=== PATIENT | female | born 1985 | race Caucasian/White ===

== ENCOUNTER 2016-12-20 08:32 | Emergency (ER) | payer OTHER ==
[~2016-12-20 08:32] MED LIST: ACET50TA PO; BREAMIS24 XX; RANI150T PO; SERT-141 PO; TYLE500T78 PO
[2016-12-20] MEDS ORDERED: diphenhydrAMINE 25 MG CAP As Ordered ONE (09:20)
[2016-12-20] MEDS ORDERED: predniSONE 20 MG TAB As Ordered ONE (09:20)
[2016-12-20] MEDS ORDERED: FAMOTIDINE 20 MG TAB As Ordered ONE (09:20)
--- NOTE | 2016-12-20 11:06 | EDDOCDS ---
Physician Documentation [facility] Name: Brisa Babcock April Age: 31 yrs Sex: Female : 1985 Arrival Date: 12/20/2016 Time: 08:32 Bed PR Private MD: Disposition: 12/20/16 10:14 Discharged to Home/Self Care. Impression: Rash and other nonspecific skin eruption - acute drug reaction to CT contrast dye, skin rash. - Condition is Stable. - Discharge Instructions: Drug Rash. - Prescriptions for Claritin 10 mg Oral Tablet - take 1 tablet by ORAL route once daily As needed; 30 tablet. Prednisone 20 mg Oral Tablet - take 2 tablets by ORAL route once daily for 5 days; 8 tablet. - Medication Reconciliation, Local Pharmacy Hours form. - Follow up: Emergency Department; When: As needed; Reason: Trouble breathing, Worsening of conditions. Follow up: Private Physician; When: Call to arrange an appointment; Reason: Recheck today's complaints, Continuance of care. - Problem is new. - Symptoms have improved. - Notes: recommend over the counter calamine lotion for itch relief. pump and dump while on prednisone. list CT contrast dye as allergy Historical: - Allergies: Hydrocodone-Acetaminophen (Swelling); IV Dye; - Home Meds: 1. Benadryl 25 mg Oral cap as needed (Last dose: 12/20/2016 01:00) 2. tramadol 50 mg Oral tab 1 tab every 4 hours (Last dose: 12/17/2016) 3. ferrous sulfate 325 mg (65 mg iron) Oral cpER daily 4. ranitidine HCl 150 mg Oral cap 1 cap 2 times per day 5. ibuprofen 800 mg Oral tab 6. Vitamin Oral tab 1 tab once daily 7. Sertraline 50 mg daily - PMHx: GERD; Hypothyroidism; immune dysfunction; - PSHx: Appendectomy; - Social history: Smoking status: Patient states former smoker of tobacco. No barriers to communication noted, The patient speaks fluent [place], Speaks appropriately for age. - Family history: Not pertinent. - : The pt / caregiver states he / she is not on anticoagulants. Home medication list is obtained from the patient. - Exposure Risk Screening:: None identified. 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 ar2 09:12 Famotidine 20 mg PO once ordered. ar2 09:12 diphenhydrAMINE 25 mg PO once ordered. ar2 09:13 Misc. Nursing Order ordered. ar2 09:16 REGULAR DIET ROOM SERVICE ED+DIET ordered. EDMS 09:20 Financial registration complete. 09:42 [facility] Payment Agreement was scanned into [employer] and attached to record. lg Administered Medications: 09:26 Drug: diphenhydrAMINE 25 mg [diphenhydramine 25 mg capsule (1 caps)] Route: PO; hs1 09:27 Drug: predniSONE 60 mg [prednisone 20 mg tablet (3 tabs)] Route: PO; hs1 09:27 Drug: Famotidine 20 mg [famotidine 20 mg tablet (1 tabs)] Route: PO; hs1 Signatures: Dispatcher [employer] EDIA Valerie Martinez, Flaco Reg lg Leeroy Houston PA-C PA-C ar2 Eda Lowery, ADELA RN hs1 The chart was reviewed and I authenticate all verbal orders and agree with the evaluation and treatment provided.Attachments: 09:42 [facility] Payment Agreement lg MTDD
--- NOTE | 2016-12-20 11:06 | EDDOCDS ---
Nurse's Notes [facility] Name: Brisa Babcock April Age: 31 yrs Sex: Female : 1985 Arrival Date: 12/20/2016 Time: 08:32 Bed PR Private MD: Diagnosis: Rash and other nonspecific skin eruption-acute drug reaction to CT contrast dye, skin rash Presentation: 12/20 08:45 Presenting complaint: Patient states: CT scan yesterday at [place] for increased pain in hs1 right side of abdomen. Patient under care of the surgeon in [place] who ordered CT scan. last night at 530 6 pm patient started itching. Patient took Benadryl at 6pm 2 pills and then again at 10 pm and then 1 pill at 0100. Patient also use hydrocortisone cream. Patient reports hot skin and itching. Onset: The symptoms/episode began/occurred gradually. This patient has not experienced a previous allergic reaction. Anaphylaxis evaluation, the patient reports or I have noted the following symptoms which indicate a significant risk of anaphylaxis: no signs or symptoms of anaphylaxis were noted. Adult Sepsis Screening: The patient does not have new or worsening altered mentation. Patient's respiratory rate is less than 22. Systolic blood pressure is less than or equal to 100 (1 point). Patient has a qSOFA score of 0- Negative Sepsis Screen. Suicide/Homicide risk assessment- the patient denies having any suicidal and/or homicidal ideations and does not present with any other emotional, behavioral or mental health complaints. Status: Patient is not a civil service clerk or dependent. Transition of care: patient was not received from another setting of care. 08:45 Acuity: KIM Level 3 hs1 08:45 Method Of Arrival: Walkin/Carried/Asstd hs1 Triage Assessment: 08:54 General: Appears uncomfortable, Behavior is crying. Pain: Location: abdomen Pain hs1 currently is 5 out of 10 on a pain scale. HIV screening NA for this visit Offered previously. Respiratory: Reports shortness of breath. 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 Benadryl 25 mg Oral cap as needed (Last dose: 12/20/2016 01:00) 2. tramadol 50 mg Oral tab 1 tab every 4 hours (Last dose: 12/17/2016) 3. ferrous sulfate 325 mg (65 mg iron) Oral cpER daily 4. ranitidine HCl 150 mg Oral cap 1 cap 2 times per day 5. ibuprofen 800 mg Oral tab 6. Vitamin Oral tab 1 tab once daily 7. Sertraline 50 mg daily - PMHx: GERD; Hypothyroidism; immune dysfunction; - PSHx: Appendectomy; - Social history: Smoking status: Patient states former smoker of tobacco. No barriers to communication noted, The patient speaks fluent Central African, Speaks appropriately for age. - Family history: Not pertinent. - : The pt / caregiver states he / she is not on anticoagulants. Home medication list is obtained from the patient. - Exposure Risk Screening:: None identified. Screenin:23 Screening information is obtained from the patient. Fall risk: No risks identified. hs1 Assistance ADL's: requires no assistance with activities of daily living. Abuse/DV Screen: The patient / caregiver reports he/she is: not in a situation that causes fear, pain or injury. Nutritional screening: No deficits noted. Advance Directives: There is no active DNR order. home support is adequate. Assessment: 10:23 Pain: Location: abdomen. Respiratory: Airway is patent Respiratory effort is even, hs1 unlabored, Respiratory pattern is regular, symmetrical, Breath sounds are clear. GI: other abdominal wound noted to have dressing no shadowing. 11:03 Reassessment: Patient appears in no apparent distress at this time. Patient states hs1 feeling better. Patient states symptoms have improved. Social Work Consult: 11:00 Social Work Note: PSA met with pt at bedside. Pt reports having a managed care managerfinancial project manager cs from the [facility], they have not been doing much for her and she feels over welmed. Pt was given the number for Vane Kaba from [employer] in this area, which has a great reputation when working with her clients. She was also given this tag writer's number for follow up if there are any issues. Pt given a cab pass ride home, extended support. Vital Signs: 08:45 BP 134 / 64; Pulse 88; Resp 18; Temp 98.7(O); Pulse Ox 100% on R/A; lr2 10:22 BP 115 / 60; Pulse 86; Resp 18; Temp 98.3(O); Pulse Ox 98% ; Pain 6/10; hs1 Vitals: 11:04 Log In Time: December 20, 2016 at 08:34. hs1 ED Course: 08:34 Patient visited by Ric Paniagua. jp5 08:34 Patient moved to Waiting jp5 08:42 Patient moved to Triage 2 lr2 08:45 Patient visited by Leda Cui. lr2 08:50 Triage Initiated hs1 09:02 Leeroy Houston PA-C is PHCP. ar2 09:02 Mustapha Lee MD is Attending Physician. ar2 09:02 Patient visited by Leeroy Houston PA-C. ar2 09:11 Patient moved to hs1 09:42 [facility] Payment Agreement was scanned into [employer] and attached to record. lg 09:55 Patient name changed from Brisa\S\C\S\Chasejune\S\ to Brisa\S\C\S\Sadiq April. EDMS 10:06 Patient visited by Leeroy Houston PA-C. ar2 10:32 Visited by Tadeo ALDANA. srm 11:03 No IV's were initiated during this patient's visit. No procedures done that require hs1 assistance. 11:04 The patient / caregiver is instructed regarding the plan of care and ED course. hs1 Administered Medications: 09:26 Drug: diphenhydrAMINE 25 mg [diphenhydramine 25 mg capsule (1 caps)] Route: PO; hs1 09:27 Drug: predniSONE 60 mg [prednisone 20 mg tablet (3 tabs)] Route: PO; hs1 09:27 Drug: Famotidine 20 mg [famotidine 20 mg tablet (1 tabs)] Route: PO; hs1 Order Results: There are currently no results for this order. Outcome: 10:14 Discharge ordered by Provider. ar2 11:04 Discharge Assessment: Patient awake, alert and oriented x 3. No cognitive and/or hs1 functional deficits noted. Patient verbalized understanding of disposition instructions. patient administered narcotics - no. The following High Risk Discharge criteria are identified: None. Discharged to home ambulatory. Condition: improved. Discharge instructions given to patient, Instructed on discharge instructions, follow up and referral plans. medication usage, Demonstrated understanding of instructions, medications, Pt was receptive of discharge instructions/ teaching. Prescriptions given X 2. No special radiology studies were completed. Property sent home with patient. 11:05 Patient left the ED. hs1 Signatures: Dispatcher MedHost EDPatricia Abel, RN RN srm Hector Quiñones, PSA PSA Valerie Salas, Reg Reg lg Leeroy Houston, Eda Moses PA-C, RN RN hs1 Ric Paniagua jp5 Leda Cui 2 MTDD
--- NOTE | 2016-12-22 12:05 | EDDOCDS ---
Nurse's Notes [facility] Name: Brisa Babcock April Age: 31 yrs Sex: Female : 1985 Arrival Date: 12/20/2016 Time: 08:32 Bed PR Private MD: Diagnosis: Rash and other nonspecific skin eruption-acute drug reaction to CT contrast dye, skin rash Presentation: 12/20 08:45 Presenting complaint: Patient states: CT scan yesterday at [place] for increased pain in hs1 right side of abdomen. Patient under care of the surgeon in [place] who ordered CT scan. last night at 530 6 pm patient started itching. Patient took Benadryl at 6pm 2 pills and then again at 10 pm and then 1 pill at 0100. Patient also use hydrocortisone cream. Patient reports hot skin and itching. Onset: The symptoms/episode began/occurred gradually. This patient has not experienced a previous allergic reaction. Anaphylaxis evaluation, the patient reports or I have noted the following symptoms which indicate a significant risk of anaphylaxis: no signs or symptoms of anaphylaxis were noted. Adult Sepsis Screening: The patient does not have new or worsening altered mentation. Patient's respiratory rate is less than 22. Systolic blood pressure is less than or equal to 100 (1 point). Patient has a qSOFA score of 0- Negative Sepsis Screen. Suicide/Homicide risk assessment- the patient denies having any suicidal and/or homicidal ideations and does not present with any other emotional, behavioral or mental health complaints. Status: Patient is not a route delivery service driver or dependent. Transition of care: patient was not received from another setting of care. 08:45 Acuity: KIM Level 3 hs1 08:45 Method Of Arrival: Walkin/Carried/Asstd hs1 Triage Assessment: 08:54 General: Appears uncomfortable, Behavior is crying. Pain: Location: abdomen Pain hs1 currently is 5 out of 10 on a pain scale. HIV screening NA for this visit Offered previously. Respiratory: Reports shortness of breath. 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 Benadryl 25 mg Oral cap as needed (Last dose: 12/20/2016 01:00) 2. tramadol 50 mg Oral tab 1 tab every 4 hours (Last dose: 12/17/2016) 3. ferrous sulfate 325 mg (65 mg iron) Oral cpER daily 4. ranitidine HCl 150 mg Oral cap 1 cap 2 times per day 5. ibuprofen 800 mg Oral tab 6. Vitamin Oral tab 1 tab once daily 7. Sertraline 50 mg daily - PMHx: GERD; Hypothyroidism; immune dysfunction; - PSHx: Appendectomy; - Social history: Smoking status: Patient states former smoker of tobacco. No barriers to communication noted, The patient speaks fluent Burmese, Speaks appropriately for age. - Family history: Not pertinent. - : The pt / caregiver states he / she is not on anticoagulants. Home medication list is obtained from the patient. - Exposure Risk Screening:: None identified. Screenin:23 Screening information is obtained from the patient. Fall risk: No risks identified. hs1 Assistance ADL's: requires no assistance with activities of daily living. Abuse/DV Screen: The patient / caregiver reports he/she is: not in a situation that causes fear, pain or injury. Nutritional screening: No deficits noted. Advance Directives: There is no active DNR order. home support is adequate. Assessment: 10:23 Pain: Location: abdomen. Respiratory: Airway is patent Respiratory effort is even, hs1 unlabored, Respiratory pattern is regular, symmetrical, Breath sounds are clear. GI: other abdominal wound noted to have dressing no shadowing. 11:03 Reassessment: Patient appears in no apparent distress at this time. Patient states hs1 feeling better. Patient states symptoms have improved. Social Work Consult: 11:00 Social Work Note: PSA met with pt at bedside. Pt reports having a transitions rn care coordinatormanager college cs from the [facility], they have not been doing much for her and she feels over welmed. Pt was given the number for Vane Kaba from [employer] in this area, which has a great reputation when working with her clients. She was also given this consumer loan underwriter's number for follow up if there are any issues. Pt given a cab pass ride home, extended support. Vital Signs: 08:45 BP 134 / 64; Pulse 88; Resp 18; Temp 98.7(O); Pulse Ox 100% on R/A; lr2 10:22 BP 115 / 60; Pulse 86; Resp 18; Temp 98.3(O); Pulse Ox 98% ; Pain 6/10; hs1 Vitals: 11:04 Log In Time: December 20, 2016 at 08:34. hs1 ED Course: 08:34 Patient visited by Ric Paniagua. jp5 08:34 Patient moved to Waiting jp5 08:42 Patient moved to Triage 2 lr2 08:45 Patient visited by Leda Cui. lr2 08:50 Triage Initiated hs1 09:02 [facility] [place] [facility] ar2 09:02 Mustapha Lee MD is Attending Physician. ar2 09:02 Patient visited by Leeroy Houston PA-C. ar2 09:11 Patient moved to hs1 09:42 [facility] Payment Agreement was scanned into [employer] and attached to record. lg 09:55 Patient name changed from Brisa\S\C\S\Chasejune\S\ to Brisa\S\C\S\Sadiq April. EDMS 10:06 Patient visited by Leeroy Houston PA-C. ar2 10:32 Visited by Tadeo ALDANA. srm 11:03 No IV's were initiated during this patient's visit. No procedures done that require hs1 assistance. 11:04 The patient / caregiver is instructed regarding the plan of care and ED course. hs1 14:34 T-Sheet-- Draft Copy was scanned into [employer] and attached to record. gb Administered Medications: 09:26 Drug: diphenhydrAMINE 25 mg [diphenhydramine 25 mg capsule (1 caps)] Route: PO; hs1 09:27 Drug: predniSONE 60 mg [prednisone 20 mg tablet (3 tabs)] Route: PO; hs1 09:27 Drug: Famotidine 20 mg [famotidine 20 mg tablet (1 tabs)] Route: PO; hs1 Order Results: There are currently no results for this order. Outcome: 10:14 Discharge ordered by Provider. ar2 11:04 Discharge Assessment: Patient awake, alert and oriented x 3. No cognitive and/or hs1 functional deficits noted. Patient verbalized understanding of disposition instructions. patient administered narcotics - no. The following High Risk Discharge criteria are identified: None. Discharged to home ambulatory. Condition: improved. Discharge instructions given to patient, Instructed on discharge instructions, follow up and referral plans. medication usage, Demonstrated understanding of instructions, medications, Pt was receptive of discharge instructions/ teaching. Prescriptions given X 2. No special radiology studies were completed. Property sent home with patient. 11:05 Patient left the ED. hs1 Signatures: Dispatcher [employer] EDMS Patricia Roman, RN RN srm Hector Quiñones, KATYA PSA cs Cathy Morris, Reg Reg gb Valerie Martinez, Reg Reg lg Leeroy Houston PA-C PA-Tadeo ar2 Eda Lowery RN RN hs1 Ric Paniagua 5 Leda Cui2 Chart Complete MTDD
--- NOTE | 2016-12-22 12:05 | EDDOCDS ---
Physician Documentation [facility] Name: Brisa Babcock April Age: 31 yrs Sex: Female : 1985 Arrival Date: 12/20/2016 Time: 08:32 Bed PR Private MD: Disposition: 12/20/16 10:14 Discharged to Home/Self Care. Impression: Rash and other nonspecific skin eruption - acute drug reaction to CT contrast dye, skin rash. - Condition is Stable. - Discharge Instructions: Drug Rash. - Prescriptions for Claritin 10 mg Oral Tablet - take 1 tablet by ORAL route once daily As needed; 30 tablet. Prednisone 20 mg Oral Tablet - take 2 tablets by ORAL route once daily for 5 days; 8 tablet. - Medication Reconciliation, Local Pharmacy Hours form. - Follow up: Emergency Department; When: As needed; Reason: Trouble breathing, Worsening of conditions. Follow up: Private Physician; When: Call to arrange an appointment; Reason: Recheck today's complaints, Continuance of care. - Problem is new. - Symptoms have improved. - Notes: recommend over the counter calamine lotion for itch relief. pump and dump while on prednisone. list CT contrast dye as allergy Historical: - Allergies: Hydrocodone-Acetaminophen (Swelling); IV Dye; - Home Meds: 1. Benadryl 25 mg Oral cap as needed (Last dose: 12/20/2016 01:00) 2. tramadol 50 mg Oral tab 1 tab every 4 hours (Last dose: 12/17/2016) 3. ferrous sulfate 325 mg (65 mg iron) Oral cpER daily 4. ranitidine HCl 150 mg Oral cap 1 cap 2 times per day 5. ibuprofen 800 mg Oral tab 6. Vitamin Oral tab 1 tab once daily 7. Sertraline 50 mg daily - PMHx: GERD; Hypothyroidism; immune dysfunction; - PSHx: Appendectomy; - Social history: Smoking status: Patient states former smoker of tobacco. No barriers to communication noted, The patient speaks fluent Mohawk, Speaks appropriately for age. - Family history: Not pertinent. - : The pt / caregiver states he / she is not on anticoagulants. Home medication list is obtained from the patient. - Exposure Risk Screening:: None identified. 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 ar2 09:12 Famotidine 20 mg PO once ordered. ar2 09:12 diphenhydrAMINE 25 mg PO once ordered. ar2 09:13 Misc. Nursing Order ordered. ar2 09:16 REGULAR DIET ROOM SERVICE ED+DIET ordered. EDMS 09:20 Financial registration complete. lg 09:42 [facility] Payment Agreement was scanned into [employer] and attached to record. lg 14:34 T-Sheet-- Draft Copy was scanned into [employer] and attached to record. gb Administered Medications: 09:26 Drug: diphenhydrAMINE 25 mg [diphenhydramine 25 mg capsule (1 caps)] Route: PO; hs1 09:27 Drug: predniSONE 60 mg [prednisone 20 mg tablet (3 tabs)] Route: PO; hs1 09:27 Drug: Famotidine 20 mg [famotidine 20 mg tablet (1 tabs)] Route: PO; hs1 Signatures: Dispatcher [employer] EDSC Cathy Morris, Reg Reg gb Valerie Martinez, Reg Reg lg Leeroy Houston, SONIA SCOTT ar2 Eda Lowery, RN RN hs1 The chart was reviewed and I authenticate all verbal orders and agree with the evaluation and treatment provided.Attachments: :42 [facility] Payment Agreement lg 14:34 T-Sheet-- Draft Copy gb Chart Complete MTDD
--- NOTE | 2016-12-22 12:05 | EDDOCDS ---
Physician Documentation [facility] Name: Brisa Babcock April Age: 31 yrs Sex: Female : 1985 Arrival Date: 12/20/2016 Time: 08:32 Bed PR Private MD: Disposition: 12/20/16 10:14 Discharged to Home/Self Care. Impression: Rash and other nonspecific skin eruption - acute drug reaction to CT contrast dye, skin rash. - Condition is Stable. - Discharge Instructions: Drug Rash. - Prescriptions for Claritin 10 mg Oral Tablet - take 1 tablet by ORAL route once daily As needed; 30 tablet. Prednisone 20 mg Oral Tablet - take 2 tablets by ORAL route once daily for 5 days; 8 tablet. - Medication Reconciliation, Local Pharmacy Hours form. - Follow up: Emergency Department; When: As needed; Reason: Trouble breathing, Worsening of conditions. Follow up: Private Physician; When: Call to arrange an appointment; Reason: Recheck today's complaints, Continuance of care. - Problem is new. - Symptoms have improved. - Notes: recommend over the counter calamine lotion for itch relief. pump and dump while on prednisone. list CT contrast dye as allergy Historical: - Allergies: Hydrocodone-Acetaminophen (Swelling); IV Dye; - Home Meds: 1. Benadryl 25 mg Oral cap as needed (Last dose: 12/20/2016 01:00) 2. tramadol 50 mg Oral tab 1 tab every 4 hours (Last dose: 12/17/2016) 3. ferrous sulfate 325 mg (65 mg iron) Oral cpER daily 4. ranitidine HCl 150 mg Oral cap 1 cap 2 times per day 5. ibuprofen 800 mg Oral tab 6. Vitamin Oral tab 1 tab once daily 7. Sertraline 50 mg daily - PMHx: GERD; Hypothyroidism; immune dysfunction; - PSHx: Appendectomy; - Social history: Smoking status: Patient states former smoker of tobacco. No barriers to communication noted, The patient speaks fluent Azeri, Speaks appropriately for age. - Family history: Not pertinent. - : The pt / caregiver states he / she is not on anticoagulants. Home medication list is obtained from the patient. - Exposure Risk Screening:: None identified. 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 ar2 09:12 Famotidine 20 mg PO once ordered. ar2 09:12 diphenhydrAMINE 25 mg PO once ordered. ar2 09:13 Misc. Nursing Order ordered. ar2 09:16 REGULAR DIET ROOM SERVICE ED+DIET ordered. EDMS 09:20 Financial registration complete. lg 09:42 [facility] Payment Agreement was scanned into [employer] and attached to record. lg 14:34 T-Sheet-- Draft Copy was scanned into [employer] and attached to record. gb Administered Medications: 09:26 Drug: diphenhydrAMINE 25 mg [diphenhydramine 25 mg capsule (1 caps)] Route: PO; hs1 09:27 Drug: predniSONE 60 mg [prednisone 20 mg tablet (3 tabs)] Route: PO; hs1 09:27 Drug: Famotidine 20 mg [famotidine 20 mg tablet (1 tabs)] Route: PO; hs1 Signatures: Dispatcher [employer] EDGA Cathy Morris, Reg Reg gb Valerie Martinez, Reg Reg lg Leeroy Houston, SONIA SCOTT ar2 Eda Lowery, RN RN hs1 The chart was reviewed and I authenticate all verbal orders and agree with the evaluation and treatment provided.Attachments: :42 [facility] Payment Agreement lg 14:34 T-Sheet-- Draft Copy gb Chart Complete MTDD
== END 2016-12-20 11:05 | disposition home or self-care (01) ==
LOC: M ED 08:32
DX: L50.0 Allergic urticaria (principal); T50.8X5A Adverse effect of diagnostic agents, initial encounter; Y92.89 Other specified places as the place of occurrence of the external cause; Y93.89 Activity, other specified; Y99.8 Other external cause status; K21.9 Gastro-esophageal reflux disease without esophagitis; E03.9 Hypothyroidism, unspecified; Z87.891 Personal history of nicotine dependence; Z79.899 Other long term (current) drug therapy; Z88.6 Allergy status to analgesic agent; Z91.041 Radiographic dye allergy status

== ENCOUNTER → 2018-09-10 | Outpatient (REF) | payer OTHER, MEDICAID ==
[2018-09-10 20:17] LABS: BASO # 0.1 10^3/uL (0.0-0.2); BASO % 0.8 % (0.0-1.0); EOS # 0.2 10^3/uL (0.0-0.50); EOS % 1.8 % (0.0-3.0); HEMATOCRIT 41.4 % (36.0-47.0); HEMOGLOBIN 13.8 g/dl (12.0-15.5); IMMATURE GRANULOCYTE % 0.4 % (0-3.0); LYMPH # 2.2 10^3/uL (1.5-4.5); LYMPH % 22.5 % (24.0-44.0); MEAN CORPUSCULAR HEMOGLOBIN 29.3 pg (27.0-33.0); MEAN CORPUSCULAR HGB CONC 33.3 g/dl (32.0-36.5); MEAN CORPUSCULAR VOLUME 87.9 fl (80.0-96.0); MONO # 0.6 10^3/uL (0.0-0.8); NEUTROPHILS # 6.7 10^3/uL (1.8-7.7); NEUTROPHILS % 68.5 % (36.0-66.0); PLATELET COUNT, AUTOMATED 386 10^3/uL (150-450); RED BLOOD COUNT 4.71 10^6/uL (4.00-5.40); RED CELL DISTRIBUTION WIDTH 12.5 % (11.5-14.5); WHITE BLOOD COUNT 9.8 10^3/uL (4.0-10.0)
[2018-09-10 20:31] LABS: GOLD SPEC TUBE RECIEVED
[2018-09-10 20:33] LABS: ALBUMIN/GLOBULIN RATIO 1.11 (1.00-1.93); ALKALINE PHOSPHATASE 92 U/L (45-117); ALT/SGPT 21 U/L (12-78); ANION GAP 5 MEQ/L (8-16); AST/SGOT 11 U/L (7-37); BILIRUBIN,TOTAL 0.4 MG/DL (0.2-1.0); BLOOD UREA NITROGEN 11 MG/DL (7-18); CALCIUM LEVEL 9.1 MG/DL (8.5-10.1); CARBON DIOXIDE LEVEL 29 MEQ/L (21-32); CHLORIDE LEVEL 109 MEQ/L (98-107); CHOLESTEROL LEVEL 111 MG/DL (<200); CHOLESTEROL RISK RATIO 2.921 (<5); CREATININE FOR GFR 0.76 MG/DL (0.55-1.30); GLOMERULAR FILTRATION RATE > 60.0 (>60); GLUCOSE, FASTING 98 MG/DL (70-100); HDL CHOLESTEROL 38 MG/DL (>40); LDL CHOLESTEROL 48 MG/DL (<100); NON-HDL-C 73 MG/DL; POTASSIUM SERUM 3.9 MEQ/L (3.5-5.1); SODIUM LEVEL 143 MEQ/L (136-145); TOTAL PROTEIN 7.6 GM/DL (6.4-8.2); TRIGLYCERIDES LEVEL 126 MG/DL (<150)
[2018-09-10 20:35] LABS: TOTAL 25(OH) VITAMIN D 26.1 NG/ML (30.0-100.0)
== END ==
LOC: M LAB REF 18:59
DX: Z13.9 Encounter for screening, unspecified (principal)
CPT/HCPCS: 84443

== ENCOUNTER 2019-04-02 11:24 | Emergency (ER) | payer MEDICAID, OTHER ==
[~2019-04-02] VITALS: Ht 170.2 cm; Wt 76.4 kg
[~2019-04-02 11:24] MED LIST changes: -ACET50TA PO; -BREAMIS24 XX; +MAPA500T2 PO; +[UNRECOGNIZED DRUG - CODE] XX
[2019-04-02] MEDS ORDERED: ALBU8.5H (11:32)
[2019-04-02] MEDS ORDERED: ALL10TAB28 (11:32)
[2019-04-02] MEDS ORDERED: FLUO20CA19 (11:32)
--- NOTE | 2019-04-02 12:30 | REP ---
Right forearm: Two views. History: Injury. Findings: AP and lateral views of the right forearm demonstrate normal bones, joints and soft tissues. No fracture or subluxation is seen. Impression: Negative right forearm radiographs. Electronically Signed by Vic Garcia MD 04/02/2019 12:22 P
[2019-04-02] MEDS ORDERED: IBUPROFEN 600 MG TAB PO ONE (14:30)
[2019-04-02 15:04] VITALS: BP 115/61
== END 2019-04-02 15:14 | disposition home or self-care (01) ==
LOC: M ED 11:24
DX: S63.91XA Sprain of unspecified part of right wrist and hand, initial encounter (principal); W19.XXXA Unspecified fall, initial encounter; Y92.018 Other place in single-family (private) house as the place of occurrence of the external cause; Z88.5 Allergy status to narcotic agent; Z91.041 Radiographic dye allergy status

== ENCOUNTER → 2019-05-16 | Outpatient (REF) | payer OTHER ==
[~2019-05-16] MED LIST changes: +ALBU8.5H; +ALL10TAB28; +AMOX500T PO; +FLUO20CA19; +ONDA4TAB6 PO; +RANI1TAB38 PO
[2019-05-16 20:14] LABS: APPEARANCE, URINE CLEAR (CLEAR); BACTERIA, URINE AUTO NEGATIVE (NEGATIVE); BILIRUBIN, URINE AUTO NEGATIVE (NEGATIVE); BLOOD, URINE BLOOD NEGATIVE (NEGATIVE); COLOR, URINE STRAW (YELLOW); GLUCOSE, URINE (UA) AUTO NEGATIVE (NEGATIVE); KETONE, URINE AUTO NEGATIVE (NEGATIVE); LEUKOCYTE ESTERASE, URINE AUTO 1+ (NEGATIVE); NITRITE, URINE AUTO NEGATIVE (NEGATIVE); PROTEIN, URINE AUTO NEGATIVE (NEGATIVE); RBC, URINE AUTO 0 /HPF (0-3); SPECIFIC GRAVITY URINE AUTO 1.009 (1.002-1.035); SQUAMOUS EPITHELIAL CELL UR AU 2 /HPF (0-6); UROBILINOGEN, URINE AUTO 0.2 mg/dL (0.0-2.0); WBC, URINE AUTO 5 /HPF (0-3)
[2019-05-16 22:16] LABS: CHLAMYDIA DNA AMPLIFICATION NEGATIVE (NEGATIVE); GC DNA AMPLIFICATION NEGATIVE (NEGATIVE)
== END ==
LOC: M LAB REF 18:53
PROVIDERS: ATTEND Nurse Practitioner Family
DX: R30.0 Dysuria (principal)

== ENCOUNTER → 2019-05-20 | Outpatient (REF) | payer OTHER, MEDICAID | LOC: M LAB REF 12:59 | PROVIDERS: ATTEND Nurse Practitioner Family | DX: J02.9 Acute pharyngitis, unspecified (principal) ==

== ENCOUNTER 2019-05-24 03:51 | Emergency (ER) | payer MEDICAID, OTHER ==
[~2019-05-24] VITALS: Ht 170.2 cm; Wt 76.4 kg
[~2019-05-24 03:51] MED LIST changes: -AMOX500T PO; -ONDA4TAB6 PO; -RANI1TAB38 PO
[2019-05-24] MEDS ORDERED: RANI1TAB38 PO (03:58)
[2019-05-24] MEDS ORDERED: AMOX500T PO (03:58)
[2019-05-24 05:51] LABS: BASO # 0.1 10^3/uL (0.0-0.2); BASO % 0.7 % (0.0-1.0); EOS % 0.4 % (0.0-3.0); HEMATOCRIT 41.1 % (36.0-47.0); HEMOGLOBIN 14.3 g/dl (12.0-15.5); LYMPH # 1.5 10^3/uL (1.5-4.5); LYMPH % 15.5 % (24.0-44.0); MEAN CORPUSCULAR HEMOGLOBIN 31.5 pg (27.0-33.0); MEAN CORPUSCULAR HGB CONC 34.8 g/dl (32.0-36.5); MEAN CORPUSCULAR VOLUME 90.5 fl (80.0-96.0); MONO # 0.3 10^3/uL (0.0-0.8); MONO % 3.2 % (0.0-5.0); NEUTROPHILS # 7.6 10^3/uL (1.8-7.7); NEUTROPHILS % 79.8 % (36.0-66.0); PLATELET COUNT, AUTOMATED 420 10^3/uL (150-450); RED BLOOD COUNT 4.54 10^6/uL (4.00-5.40); WHITE BLOOD COUNT 9.5 10^3/uL (4.0-10.0)
[2019-05-24 06:01] LABS: ALBUMIN 4.2 GM/DL (3.2-5.2); ALT/SGPT 22 U/L (12-78); BILIRUBIN,DIRECT < 0.1 MG/DL (0.0-0.2); BILIRUBIN,TOTAL 0.3 MG/DL (0.2-1.0); BLOOD UREA NITROGEN 11 MG/DL (7-18); CALCIUM LEVEL 9.1 MG/DL (8.5-10.1); CARBON DIOXIDE LEVEL 24 MEQ/L (21-32); CHLORIDE LEVEL 108 MEQ/L (98-107); CREATININE FOR GFR 0.84 MG/DL (0.55-1.30); GLOMERULAR FILTRATION RATE > 60.0 (>60); GLUCOSE, FASTING 183 MG/DL (70-100); LIPASE 167 U/L (73-393); POTASSIUM SERUM 3.8 MEQ/L (3.5-5.1); SODIUM LEVEL 143 MEQ/L (136-145); TOTAL PROTEIN 8.4 GM/DL (6.4-8.2)
[2019-05-24] MEDS ORDERED: ONDANSETRON 4MG/2ML VIAL (J2405) IV ONE (06:30)
[2019-05-24] MEDS ORDERED: NS 1,000 ML IV ONE ×2 (06:30→09:00)
--- NOTE | 2019-05-24 07:04 | REPVR ---
EXAM: US Abdomen Limited EXAM DATE/TIME: 05/24/2019 6:40 AM CLINICAL HISTORY: 33 years old, female; Abdominal pain; Generalized; Additional info: Mid abd pain, R/O hernia TECHNIQUE: Imaging protocol: Real-time ultrasound of the abdomen with image documentation. Examination is focused on the region of clinical interest. COMPARISON: No relevant prior studies available. FINDINGS: Soft tissues: Dedicated ultrasound of the abdominal wall soft tissues at the area of palpable abnormality the left of the umbilicus did not demonstrate any focal abnormality. No focal mass or fluid collection seen. No subcutaneous noted. No bowel herniation seen upon Valsalva maneuver. IMPRESSION: No sonographic evidence of abnormality in the subcutaneous tissues to the left of the umbilicus in the clinical area of concern and palpable abnormality. Electronically signed by: Parth Alvarez On 05/24/2019 07:04:08 AM
[2019-05-24] MEDS ORDERED: PROMETHAZINE INJ 25 MG/ML VIAL (J2550) IV ONE (09:00)
[2019-05-24 09:53] LABS: HEMOGLOBIN A1c 5.1 %
[2019-05-24] MEDS ORDERED: ONDA4TAB6 PO (10:29)
[2019-05-24 11:35] VITALS: BP 109/63
== END 2019-05-24 11:37 | disposition home or self-care (01) ==
LOC: M ED 03:51
DX: E86.0 Dehydration (principal); R11.2 Nausea with vomiting, unspecified; K21.9 Gastro-esophageal reflux disease without esophagitis; F41.9 Anxiety disorder, unspecified; F32.9 Major depressive disorder, single episode, unspecified; Z88.5 Allergy status to narcotic agent; Z91.041 Radiographic dye allergy status; Z79.899 Other long term (current) drug therapy; Z79.2 Long term (current) use of antibiotics
CPT/HCPCS: 36415; 76705; 80048; 80076; 81001; 83036; 83605; 83690; 85025; 93041; 96374; 96375; 99285; J2405

== ENCOUNTER 2019-06-29 00:29 | Emergency (ER) | payer OTHER ==
[~2019-06-29] VITALS: Ht 170.2 cm; Wt 79.1 kg
[~2019-06-29 00:29] MED LIST changes: +AMOX500T PO; +ONDA4TAB6 PO; +RANI1TAB38 PO
[2019-06-29 01:25] LABS: BASO # 0.1 10^3/uL (0.0-0.2); BASO % 0.6 % (0.0-1.0); EOS # 0.2 10^3/uL (0.0-0.50); EOS % 1.9 % (0.0-3.0); HEMATOCRIT 40.8 % (36.0-47.0); HEMOGLOBIN 13.7 g/dl (12.0-15.5); LYMPH # 2.8 10^3/uL (1.5-4.5); LYMPH % 24.7 % (24.0-44.0); MEAN CORPUSCULAR HEMOGLOBIN 30.4 pg (27.0-33.0); MEAN CORPUSCULAR HGB CONC 33.6 g/dl (32.0-36.5); MEAN CORPUSCULAR VOLUME 90.5 fl (80.0-96.0); MONO # 0.7 10^3/uL (0.0-0.8); MONO % 6.1 % (0.0-5.0); NEUTROPHILS # 7.5 10^3/uL (1.8-7.7); NEUTROPHILS % 66.2 % (36.0-66.0); PLATELET COUNT, AUTOMATED 385 10^3/uL (150-450); RED BLOOD COUNT 4.51 10^6/uL (4.00-5.40); WHITE BLOOD COUNT 11.4 10^3/uL (4.0-10.0)
[2019-06-29 01:39] LABS: HCG, SERUM QUALITATIVE NEGATIVE (NEGATIVE)
[2019-06-29 01:58] LABS: ALT/SGPT 22 U/L (12-78); BILIRUBIN,DIRECT < 0.1 MG/DL (0.0-0.2); BILIRUBIN,TOTAL 0.3 MG/DL (0.2-1.0); BLOOD UREA NITROGEN 5 MG/DL (7-18); CALCIUM LEVEL 8.7 MG/DL (8.5-10.1); CARBON DIOXIDE LEVEL 26 MEQ/L (21-32); CHLORIDE LEVEL 110 MEQ/L (98-107); ETHYL ALCOHOL (ETHANOL) 0.248 % (0.000-0.010); GLOMERULAR FILTRATION RATE > 60.0 (>60); GLUCOSE, FASTING 101 MG/DL (70-100); LIPASE 103 U/L (73-393); POTASSIUM SERUM 5.2 MEQ/L (3.5-5.1); SODIUM LEVEL 143 MEQ/L (136-145); TOTAL PROTEIN 7.9 GM/DL (6.4-8.2)
[2019-06-29] MEDS ORDERED: PANTOPRAZOLE 40MG INJ (PROTONIX) (C9113) IV ONE (02:00)
[2019-06-29] MEDS ORDERED: GI COCKTAIL 50ML BTL(HYOSCYAMINE/MAALOX/LIDOCAINE VISCOUS)(1:3:1) PO ONE (02:00)
[2019-06-29] MEDS ORDERED: NS 1,000 ML IV SCH (02:07)
[2019-06-29] MEDS ORDERED: PROMETHAZINE INJ 25 MG/ML VIAL (J2550) IV ONE (02:30)
--- NOTE | 2019-06-29 03:05 | REPVR ---
EXAM: CT Abdomen and Pelvis Without Contrast EXAM DATE/TIME: 06/29/2019 1:45 AM CLINICAL HISTORY: 33 years old, female; Abdominal pain; Generalized; Additional info: Generalized abd pain TECHNIQUE: Imaging protocol: Axial computed tomography images of the abdomen and pelvis without contrast. Coronal and sagittal reformatted images were created and reviewed. Radiation optimization: All CT scans at this facility use at least one of these dose optimization techniques: automated exposure control; mA and/or kV adjustment per patient size (includes targeted exams where dose is matched to clinical indication); or iterative reconstruction. COMPARISON: US Thyroid 05/24/2019 6:35 AM FINDINGS: Lungs: Minimal right middle lobe atelectasis or scar. Liver: Normal. No mass. Gallbladder and bile ducts: There are a few small gallstones in the gallbladder. Pancreas: Normal. No ductal dilation. Spleen: Normal. No splenomegaly. Adrenals: Normal. No mass. Kidneys and ureters: Normal. No hydronephrosis. Stomach and bowel: Nondistended fluid-filled segments of small bowel with a few air-fluid levels which are nonspecific and may reflect minimal ileus or possibly enteritis. Appendix: A normal appendix is seen. Intraperitoneal space: Normal. No free air. No significant fluid collection. Vasculature: Incidental note of an accessory retroaortic left renal vein. Lymph nodes: Normal. No enlarged lymph nodes. Bladder: Unremarkable as visualized. Reproductive: Unremarkable as visualized. Bones/joints: No acute fracture. No dislocation. Soft tissues: Midline abdominal and pelvic incision. IMPRESSION: 1. Minimal cholelithiasis 2. Residua of midline abdominal and pelvic incision. 3. Nondistended fluid-filled small bowel with a few air-fluid levels which are nonspecific and may reflect minimal ileus. Enteritis is not excluded. 4. Otherwise negative CT abdomen/pelvis. Electronically signed by: Miguel Angel Jackson On 06/29/2019 03:04:46 AM
[2019-06-29 06:15] VITALS: BP 138/77
[2019-06-29] MEDS ORDERED: ZOFR4TAB16 PO (06:33)
== END 2019-06-29 06:49 | disposition home or self-care (01) ==
LOC: M ED 00:29
DX: K56.7 Ileus, unspecified (principal); F10.229 Alcohol dependence with intoxication, unspecified; Y90.1 Blood alcohol level of 20-39 mg/100 ml; E07.9 Disorder of thyroid, unspecified; D64.9 Anemia, unspecified; F33.9 Major depressive disorder, recurrent, unspecified; F41.9 Anxiety disorder, unspecified; K21.9 Gastro-esophageal reflux disease without esophagitis; Z79.899 Other long term (current) drug therapy; Z88.5 Allergy status to narcotic agent; Z91.041 Radiographic dye allergy status
CPT/HCPCS: 36415; 74176; 80048; 80076; 81001; 83690; 84702; 84703; 85025; 96361; 96374; 96375; 99284; C9113; G0480

== ENCOUNTER 2019-11-14 05:26 | Emergency (ER) | payer OTHER ==
[~2019-11-14] VITALS: Ht 170.2 cm; Wt 77.3 kg
[~2019-11-14 05:26] MED LIST changes: -ALL10TAB28; +ALL10TAB29; +ZOFR4TAB16 PO
[2019-11-14] MEDS ORDERED: NS 1,000 ML IV SCH (06:15)
[2019-11-14] MEDS ORDERED: MORPHINE 4 MG/ML 1ML VIAL/SYRINGE (J2270) IV ONE (06:30)
[2019-11-14] MEDS ORDERED: METOCLOPRAMIDE INJ 10MG/2ML VIAL (J2765) IV ONE (06:30)
[2019-11-14 06:32] LABS: BASO # 0.1 10^3/uL (0.0-0.2); BASO % 1.2 % (0.0-1.0); EOS # 0.1 10^3/uL (0.0-0.5); EOS % 1.5 % (0.0-3.0); HEMATOCRIT 39.5 % (36.0-47.0); HEMOGLOBIN 13.5 g/dl (12.0-15.5); LYMPH # 1.9 10^3/uL (1.5-5.0); LYMPH % 22.4 % (24.0-44.0); MEAN CORPUSCULAR HEMOGLOBIN 30.6 pg (27.0-33.0); MEAN CORPUSCULAR HGB CONC 34.2 g/dl (32.0-36.5); MEAN CORPUSCULAR VOLUME 89.6 fl (80.0-96.0); MONO # 0.5 10^3/uL (0.0-0.8); MONO % 5.4 % (0.0-5.0); NEUTROPHILS % 69.2 % (36.0-66.0); PLATELET COUNT, AUTOMATED 403 10^3/uL (150-450); RED BLOOD COUNT 4.41 10^6/uL (4.00-5.40); WHITE BLOOD COUNT 8.6 10^3/uL (4.0-10.0)
[2019-11-14 06:35] LABS: HCG, SERUM QUALITATIVE NEGATIVE (NEGATIVE)
[2019-11-14] MEDS ORDERED: diphenhydrAMINE INJ 50MG/ML VIAL (J1200) IV STA (06:39)
[2019-11-14 06:43] LABS: ALBUMIN 3.6 GM/DL (3.2-5.2); ALT/SGPT 19 U/L (12-78); BILIRUBIN,DIRECT 0.1 MG/DL (0.0-0.2); BILIRUBIN,TOTAL 0.3 MG/DL (0.2-1.0); BLOOD UREA NITROGEN 6 MG/DL (7-18); CALCIUM LEVEL 8.5 MG/DL (8.5-10.1); CARBON DIOXIDE LEVEL 24 MEQ/L (21-32); CHLORIDE LEVEL 110 MEQ/L (98-107); CREATININE FOR GFR 0.76 MG/DL (0.55-1.30); GLOMERULAR FILTRATION RATE > 60.0 (>60); GLUCOSE, FASTING 159 MG/DL (70-100); LIPASE 107 U/L (73-393); POTASSIUM SERUM 3.8 MEQ/L (3.5-5.1); SODIUM LEVEL 143 MEQ/L (136-145); TOTAL PROTEIN 7.9 GM/DL (6.4-8.2)
[2019-11-14] MEDS ORDERED: dexameTHASONE 20 MG/5 ML VIAL (J1100) IV ONE (06:45)
[2019-11-14] MEDS: GASTROGRAFIN SOLUTION 30ML PO SCH ×2 (07:08→07:38)
[2019-11-14] MEDS ORDERED: ISOVUE-370 76% 100ML VIAL (Q9967) As Ordered ONE (08:21)
--- NOTE | 2019-11-14 08:54 | REP ---
Clinical: Postoperative pain. Technique: Axial contrast enhanced images from the lung bases to the pubic symphysis using oral (per protocol) and 100 ml Isovue 370 intravenous contrast material with coronal and sagittal re-formations. Comparison: 06/29/2019. Findings: Lung bases are clear. Visualized heart and pericardium normal. Liver, spleen, pancreas, bilateral adrenal glands and kidneys are normal. Mild fatty infiltration to the liver cannot be excluded. Cholelithiasis noted without acute cholecystitis. The enteric system suggests moderate fecal stasis and possible constipation. No bowel obstruction or acute inflammatory process appreciated. Normal terminal ileum, cecum and appendix identified in the right lower quadrant. Pelvis demonstrates normal bladder and age-appropriate uterus/adnexa. No ascites. No free air. No adenopathy. Abdominal aorta and vasculature appear normal. Changes in the midline subcutaneous tissues and periumbilical region consistent with prior surgical incision and without associated abnormal fluid collection or acute finding. Impression: 1. Mild fatty infiltration to the liver suggested. 2. Moderate fecal stasis and possible constipation. 3. Cholelithiasis. 4. No further acute abdominopelvic pathology appreciated. Electronically Signed by Mason Velasquez MD 11/14/2019 08:45 A
--- NOTE | 2019-11-14 09:52 | REP ---
Clinical: Abdominal pain. Technique: Real time adams scale ultrasound examination using curved array transducer. Findings: Liver and visualized pancreas are normal in contour, size, echogenicity without focal hepatic or pancreatic lesion identified. Gallbladder demonstrates multiple mobile gallstones without wall thickening or pericholecystic fluid. No biliary ductal dilatation is appreciated and the common bile duct measures 3.1 mm diameter. The right kidney is normal in reniform shape without hydronephrosis and measures 10.4 x 3.9 x 3.7 cm. No ascites in the visualized right upper quadrant. Impression: Cholelithiasis. Electronically Signed by Mason Velasquez MD 11/14/2019 09:43 A
[2019-11-14 10:51] VITALS: BP 109/56
== END 2019-11-14 10:52 | disposition home or self-care (01) ==
LOC: M ED 05:26
DX: R10.9 Unspecified abdominal pain (principal); F33.9 Major depressive disorder, recurrent, unspecified; K21.9 Gastro-esophageal reflux disease without esophagitis; Z79.899 Other long term (current) drug therapy; Z90.89 Acquired absence of other organs; Z91.041 Radiographic dye allergy status; Z98.890 Other specified postprocedural states; Z88.5 Allergy status to narcotic agent
CPT/HCPCS: 74177; 76705; 80048; 80076; 81001; 83605; 83690; 84702; 84703; 85025; 87086; 96374; 96375; 99284; J1100; J1200; J2270; J2765; Q9963; Q9967

== ENCOUNTER 2019-11-19 05:46 | Emergency (ER) | payer OTHER ==
[~2019-11-19] VITALS: Ht 170.2 cm; Wt 72.7 kg
[2019-11-19] MEDS ORDERED: NS 1,000 ML IV ONE (06:30)
[2019-11-19 06:35] LABS: URINE PREG TEST NEGATIVE (NEGATIVE)
[2019-11-19 06:38] LABS: BASO # 0.1 10^3/uL (0.0-0.2); BASO % 0.9 % (0.0-1.0); EOS # 0.4 10^3/uL (0.0-0.5); EOS % 3.1 % (0.0-3.0); HEMATOCRIT 44.8 % (36.0-47.0); HEMOGLOBIN 14.7 g/dl (12.0-15.5); LYMPH # 3.3 10^3/uL (1.5-5.0); LYMPH % 28.9 % (24.0-44.0); MEAN CORPUSCULAR HEMOGLOBIN 29.7 pg (27.0-33.0); MEAN CORPUSCULAR HGB CONC 32.8 g/dl (32.0-36.5); MEAN CORPUSCULAR VOLUME 90.5 fl (80.0-96.0); MONO # 0.8 10^3/uL (0.0-0.8); MONO % 6.7 % (0.0-5.0); NEUTROPHILS # 6.8 10^3/uL (1.5-8.5); NEUTROPHILS % 59.8 % (36.0-66.0); PLATELET COUNT, AUTOMATED 497 10^3/uL (150-450); RED BLOOD COUNT 4.95 10^6/uL (4.00-5.40); WHITE BLOOD COUNT 11.3 10^3/uL (4.0-10.0)
[2019-11-19 06:55] LABS: AMPHETAMINES LEVEL URINE NEGATIVE (NEGATIVE); BARBITURATES URINE NEGATIVE (NEGATIVE); BENZODIAZEPINES URINE NEGATIVE (NEGATIVE); CANNABINOIDS URINE NEGATIVE (NEGATIVE); COCAINE METABOLITE URINE NEGATIVE (NEGATIVE); METHADONE URINE NEGATIVE (NEGATIVE); OPIATES URINE NEGATIVE (NEGATIVE); PHENCYCLIDINE URINE NEGATIVE (NEGATIVE)
[2019-11-19 07:09] LABS: HCG, SERUM QUALITATIVE NEGATIVE (NEGATIVE)
[2019-11-19 07:14] LABS: ALBUMIN 4.2 GM/DL (3.2-5.2); ALT/SGPT 21 U/L (12-78); BILIRUBIN,DIRECT 0.1 MG/DL (0.0-0.2); BILIRUBIN,TOTAL 0.3 MG/DL (0.2-1.0); BLOOD UREA NITROGEN 8 MG/DL (7-18); CALCIUM LEVEL 9.2 MG/DL (8.5-10.1); CARBON DIOXIDE LEVEL 26 MEQ/L (21-32); CHLORIDE LEVEL 110 MEQ/L (98-107); CK-MB VALUE MASS < 1.0 NG/ML (<3.6); CPK CREATINE PHOSPHOKINASE 69 U/L (26-192); CREATININE FOR GFR 0.82 MG/DL (0.55-1.30); ETHYL ALCOHOL (ETHANOL) 0.267 % (0.000-0.010); GLOMERULAR FILTRATION RATE > 60.0 (>60); GLUCOSE, FASTING 139 MG/DL (70-100); LIPASE 234 U/L (73-393); MB/CK RELATIVE INDEX 1.45 (< OR =4); POTASSIUM SERUM 3.8 MEQ/L (3.5-5.1); SODIUM LEVEL 146 MEQ/L (136-145); TOTAL PROTEIN 8.5 GM/DL (6.4-8.2); TROPONIN I < 0.02 NG/ML (< 0.10)
[2019-11-19] MEDS ORDERED: ONDANSETRON 4MG/2ML VIAL (J2405) IV ONE (07:15)
[2019-11-19] MEDS ORDERED: KETOROLAC 30 MG/ML VIAL (J1885) IV ONE (07:30)
--- NOTE | 2019-11-19 07:37 | REP ---
Clinical: Chest and abdominal pain . Comparison: None . Technique: PA and lateral. Findings: The mediastinum and cardiac silhouette are normal. The lung horvath are clear and without acute consolidation, effusion, or pneumothorax. The skeletal structures are intact and normal. Impression: 1. No acute cardiopulmonary process. Electronically Signed by Mason Velasquez MD 11/19/2019 07:29 A
--- NOTE | 2019-11-19 07:38 | REP ---
Clinical: Abdominal pain. Technique: Single supine view of the abdomen and pelvis. Findings: Bowel gas pattern is nonspecific. No organomegaly. No abnormal calcifications. Skeletal structures are intact. Small phleboliths noted in the pelvis. Impression: Nonspecific bowel gas pattern. Electronically Signed by Mason Velasquez MD 11/19/2019 07:30 A
--- NOTE | 2019-11-19 07:59 | REPVR ---
PROCEDURE INFORMATION: Exam: US Abdomen Limited, Right Upper Quadrant Exam date and time: 11/19/2019 6:51 AM Age: 34 years old Clinical indication: Abdominal pain; Additional info: Ruq ttp, h/o gallstones TECHNIQUE: Imaging protocol: Real-time ultrasound of the abdomen with image documentation. Examination was focused on the right upper quadrant. COMPARISON: GALLBLADDER US 11/14/2019 9:22 AM (report not provided) FINDINGS: Limitations: Patient reportedly terminated the exam prior to completion. Liver: The liver is homogeneous in echotexture. No demonstrated mass or intrahepatic biliary ductal dilatation. Gallbladder: The gallbladder contains multiple mobile stones. Its wall is not significantly thickened, and there is no significant pericholecystic fluid. There was reportedly tenderness in the region. Common bile duct: The common bile duct is normal in size for a patient of this age at 3.6 mm. Pancreas: Visualized portions of the pancreas, not fully including the tail, are without demonstrated abnormality. Right kidney: The right kidney was not measured completely visualized. It appears unremarkable as seen. IMPRESSION: Incomplete exam demonstrating cholelithiasis with reported tenderness in the region, raising the possibility of cholecystitis. Electronically signed by: Oli Ibrahim On 11/19/2019 07:58:27 AM
[2019-11-19] MEDS ORDERED: MORPHINE 4 MG/ML 1ML VIAL/SYRINGE (J2270) IV ONE (12:00)
[2019-11-19 13:00] VITALS: BP 120/69
--- NOTE | 2019-11-19 14:33 | CR ---
DATE OF CONSULTATION: 11/19/2019 REASON FOR CONSULTATION: Abdominal pain and gallstones. HISTORY OF THE PRESENT ILLNESS: The patient is a 34-year-old woman who presented to the emergency department at approximately 5:46 in the morning of 11/19/2019 complaining of abdominal pain. The patient reports that she has had chronic abdominal pain since several major surgeries that were performed in [place]. Apparently in late 2015 while the patient was she developed by her report appendicitis which perforated and she required surgery for this. She reports having had subsequent bowel obstructions and having been admitted to the hospital for up to several months. She indicates that she had some pain following that surgery. In September 2018, she underwent surgery for repair of a hernia with placement of prosthetic mesh. She indicates that she has had persistent pain since then, though it has been significantly worse over the last few weeks. The patient reports that she had last seen her surgeon in [place] back in November or December of 2018. She reports that he had suggested that they might refer her to a pain management center if her pain persisted, but she has not heard anything further, but has also apparently not checked back with him about this concern. She indicates that she has been told to take Tylenol or ibuprofen as needed for pain but reports she does not like taking pain medicines, so she has not really been taking anything routinely. She had at one time anyway been told to take tramadol if the pain became severe, but indicates to me that she has not been taking any of that either. She was seen in the emergency department on 11/14/2019 for abdominal pain and during that visit had undergone evaluation with laboratory studies as well as a CT scan of the abdomen and pelvis and a gallbladder ultrasound. Her labs on 11/14/2019 were normal with a white count of 9 and 69% neutrophils. Her chemistries showed no significant abnormalities other than a slight elevation of her glucose to 159. Her CT scan revealed moderate fecal stasis possibly representing constipation and she was noted also to have cholelithiasis but without evidence for acute cholecystitis. The gallbladder ultrasound was read as showing cholelithiasis, but again without any wall thickening or pericholecystic fluid. She was discharged home. She represented as noted on the morning of 11/19/2019 complaining again of pain. She reports that in order to try to treat her pain last night she did drink some alcohol. She reports that she does not normally drink alcohol but was hoping it would make her pain better, which it apparently did not. She has not had any significant nausea or vomiting, though she does report some mild nausea at times. She reports that her pain is most prominent in the left midabdomen about 5-7 cm to the left of the midline. She reports pain however that can be all over the abdomen. She reports that she has been having regular bowel movements. Over the last day or two she reports her bowel movements have been more voluminous than normal, but otherwise normal. She has not noticed any bleeding. She denies any dysuria or hematuria but does report that she was treated for a urinary tract infection a couple of weeks ago through [facility]. She believes she was on Augmentin for that. She has not noticed any fevers or chills. She denies any chest pain or any respiratory symptoms. In the emergency room today, she was evaluated further with additional lab work. She had a gallbladder ultrasound repeated and I was asked to evaluate the patient regarding the pain and whether gallstones played any role in that. MEDICATIONS: The patient reports that she is on cetirizine 10 mg daily. She has fluoxetine 20 mg by mouth daily. She has apparently a prescription for some Zofran as well as Zantac. ALLERGIES are reported to CONTRAST MEDIA and HYDROCODONE. She says the hydrocodone makes her face swell. SURGICAL HISTORY: The patient had some sort of exploratory laparotomy with what sounds like a complicated postop course for perforated appendicitis back in late 2016 into early 2016. She had an open ventral hernia repair with mesh in September of 2018. She does report having had some dental surgery since then but no other major surgical procedures. MEDICAL HISTORY: She does have a diagnosis of anxiety and depression listed. She denies any history of heart, lung or kidney problems. She has had no history of deep venous thrombosis (DVT) or pulmonary embolus reported. She has no history of seizures, stroke or migraine headaches. She apparently has had some gastroesophageal reflux. There is no history of diabetes or thyroid issues. Family history is noncontributory. SOCIAL HISTORY: The patient has three children at home, and she reports that her mother is taking care of those right now. She has been accompanied by a significant other to the emergency department. REVIEW OF SYSTEMS: Shows no cough or wheezing. She denies any tobacco use. She denies any chest pain or palpitations. She has had no melena or hematochezia. She denies dysuria, although as noted she had been treated for a urinary tract infection (UTI) about 2 weeks ago by her report. She has no history of DVT or any significant orthopedic issues. She reports that she had been on shots for control and these stopped several months ago, but she has not yet resumed her periods. She receives her medical care through the [facility] and [facility]. PHYSICAL EXAMINATION: The patient's most recent vital signs in the emergency department showed a temperature of 97.8, pulse 105, blood pressure 119/66. Room air oxygen saturation was 96%. Her height is recorded as 5 feet 7 inches with a weight of 72 kg. She is initially lying quietly on the stretcher in the emergency department room. She is alert and responsive. She is at times tearful. She is somewhat anxious. She is at times pleading that she has pain. Head, eyes, ears, nose and throat shows that the skin is warm and dry. Skin turgor is good. Sclerae are anicteric. Mucous membranes are moist. Neck is without palpable mass and she has no cervical bruit. Heart exam shows a regular rhythm that is not tachycardiac at this time. Lungs are clear to auscultation bilaterally and she does not appear to have any limitation to deep inspiration. Abdominal exam shows that she has a somewhat widened long midline scar present. This extends from the epigastrium down into the suprapubic area. She has three or four paired lateral abdominal scars suggestive of previous retention sutures. The abdomen is flat. She has bowel sounds present in all four quadrants. She has some guarding in the left midabdomen in that as I went to listen with my stethoscope she actually started to push my hand away from listening in this area of the abdomen. After some reassurance she did let me listen. The abdomen is soft. She does report tenderness in the left midabdomen. She has no costovertebral angle tenderness. The abdomen laterally seems less uncomfortable although along the midline she does complain of some discomfort wherever I palpated. The right upper quadrant is certainly no worse and probably better than most areas of the abdomen. There is no definite residual hernia identified. She has palpable radial pulses bilaterally. The lower extremities are without any edema or skin rash, and she has palpable dorsalis pedis pulses bilaterally. Laboratory studies today show white count of 11, hemoglobin of 15, hematocrit 45, and platelet count of 497,000. Differential count shows 60% neutrophils, 29% lymphocytes, 7% monocytes, and 3% eosinophils. Her chemistry profile showed a sodium of 146, potassium 3.8, chloride 110, CO2 of 26, BUN of 8, creatinine 0.8, and glucose of 139. Liver function tests are all entirely normal. She had a troponin less than 0.02. Protein was elevated at 8.5 with an albumin of 4.2. She had a lipase of 234 and an HCG that was negative. Urinalysis showed no evidence of urinary tract infection. She had a toxicology screen and a blood alcohol. The screen was negative for all drugs tested, but the alcohol level was 0.267. She had imaging obtained today that included a gallbladder ultrasound. The study was apparently terminated prematurely by the patient and so the study was incomplete. The gallbladder was noted to have multiple stones. The gallbladder was not felt to have a significantly thickened wall and there was no pericholecystic fluid. There was a report from the radiologist that there was reportedly some tenderness in that area. An abdominal x-ray and chest x-ray showed no abnormalities. IMPRESSION: The patient has abdominal pain which appears to be chronic and of uncertain cause. Her studies today and on 11/14/2019 show no acute findings to suggest a cause for her pain. She was noted both by CT scan and ultrasound to have cholelithiasis, but I believe that at this time her stones are likely asymptomatic and have nothing to do with her pain. Certainly her history would be very atypical for presentation of biliary colic or acute cholecystitis. She is at this presentation intoxicated with alcohol, though in speaking with the PA the patient had apparently minimized the amount that she drank though her alcohol level would suggest a significant intake of alcohol. She has a history of some anxiety and depression and certainly if she is having these issues that will weigh on any abdominal pain that she may have for whatever reason. I advised the patient that I did not identify a problem that would benefit from surgical intervention at this time. PLAN: I spoke jessica Hudson the PA in the emergency department who had consulted me and advised her that I spoke with the patient and did not feel that she needed any urgent surgical intervention and that I felt her gallstones were most likely asymptomatic at this time. I do think the patient might benefit from evaluation in a chronic pain management center that would both look for and treat identifiable causes of pain but also help to provide whatever other counseling or psychiatric services might be beneficial in helping the patient to cope with her lasting pain symptoms. PANCHO
--- NOTE | 2019-11-19 15:05 | CR ---
DATE OF CONSULTATION: 11/19/2019 REQUESTING PHYSICIAN: Dr. Burnett from the emergency room. I was asked by Reema, the mid-level provider in the emergency room minor treatment area, to see Brisa Babcock for chronic abdominal pain. She has had this for a year. It is intermittent, sharp, stabbing pain that is usually localized to either the left or the right costal margins. She says that it started after she had surgery for appendectomy and then it sounds like she had a hernia repair and the pain has been present since then. She presented to the emergency room three times in the last four months, twice in the last 5 days for this abdominal pain. She has had a workup, including a CT scan of the abdomen and pelvis over that period of time, as well as several ultrasonic examinations that showed gallstones without cholecystitis. Liver functions have remained normal. Pain does not cause vomiting. She is intermittently constipated. She denies any rectal bleeding. No fever. No chills. Pain is sometimes improved with passage of flatus or belching. SOCIAL HISTORY: She denies frequent alcohol use, but she has a blood alcohol of 0.26 today and on 06/29/2019 it was 0.25. She says that today she drank "a single beer," which I pointed out was biochemically not possible and then she offered that perhaps it was a beer and a half. MEDICATIONS: - cetirizine 10 mg daily - fluoxetine 20 mg daily - Zofran 4 mg as needed - ranitidine 150 mg twice a day as needed ALLERGIES: IV CONTRAST, HYDROCODONE. SOCIAL HISTORY: She drinks alcohol beyond the amount that she admits. She is a smoker. PHYSICAL EXAMINATION: VITAL SIGNS: Per flow sheet, stable. She is afebrile. Blood pressure 122/66. GENERAL APPEARANCE: She is lying in bed and visiting with a friend, who was in the process of dressing himself when I entered the examination room. She looked comfortable upon my entering the room but then appeared tearful. HEENT: Unremarkable. Pharynx shows moist mucous membranes. NECK: Supple. LUNGS: Clear. HEART: Regular rhythm. ABDOMEN: Soft. Diffuse tender in generalized fashion. Not reproducible. Worse over areas of healed incisions. Bowel sounds are present. No costovertebral angle tenderness. No peritoneal signs. EXTREMITIES: No peripheral edema. LABORATORIES: [facility] is 0.26. Electrolytes unremarkable. Liver function tests are normal. Albumin is normal. Lipase is normal. test was negative. White count 11.3, hemoglobin 14.7, platelets 470. Urinalysis was negative. IMAGING STUDIES: Reviewed. IMPRESSION AND PLAN: 1. Chronic abdominal pain. I suspect this is either related to the incisions or possibly flexure syndrome, such as splenic or hepatic flexure syndrome since primarily it is in each upper quadrant and side varies at different times and is relieved by stool or flatus. She is also constipated on imaging studies. I see no indication for hospitalization. I think the risk of nosocomial exposure outweigh any potential benefits. This is a chronic condition so we will not treat this with opiates. I recommended home management with over the counter analgesics, heating pad. She should see her primary care provider at [facility] for referral to pain management center (pain clinic is not available here at the hospital today or this week, they will not be back until next week). The patient understood and accepted this. 2. Alcoholism. We had a suraj discussion about two blood alcohol levels that were greater than 0.25. She has fatty liver and is at risk of cirrhosis. She understands the need to significantly reduce or abstain from alcohol.
--- NOTE | 2019-11-20 07:34 | ECGEPIP ---
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
== END 2019-11-19 13:53 | disposition home or self-care (01) ==
LOC: M ED 05:46
DX: K80.20 Calculus of gallbladder without cholecystitis without obstruction (principal); F10.120 Alcohol abuse with intoxication, uncomplicated; R10.84 Generalized abdominal pain; G89.29 Other chronic pain; R00.0 Tachycardia, unspecified; K21.9 Gastro-esophageal reflux disease without esophagitis; Z87.442 Personal history of urinary calculi; F41.9 Anxiety disorder, unspecified; F32.9 Major depressive disorder, single episode, unspecified; J45.909 Unspecified asthma, uncomplicated; Z79.899 Other long term (current) drug therapy; Z91.041 Radiographic dye allergy status; Z88.5 Allergy status to narcotic agent; F17.200 Nicotine dependence, unspecified, uncomplicated
CPT/HCPCS: 71046; 74018; 76705; 80048; 80076; 80307; 81001; 82550; 82553; 83690; 84703; 85025; 87880; 93005; 96361; 96374; 96375; 99284; G0480; J1885; J2270; J2405

== ENCOUNTER 2019-12-05 02:25 | Emergency (ER) | payer OTHER ==
[~2019-12-05] VITALS: Ht 170.2 cm; Wt 76.6 kg
[2019-12-05] MEDS ORDERED: ONDA4TAB6 PO (03:36)
[2019-12-05] MEDS ORDERED: PROAAER10 INH (03:36)
[2019-12-05] MEDS ORDERED: FLUO20CA19 PO (03:36)
[2019-12-05] MEDS ORDERED: PRENTAB9 PO (03:36)
[2019-12-05] MEDS ORDERED: ALL10TAB29 PO (03:36)
[2019-12-05 03:38] LABS: HEMOGLOBIN 14.7 g/dl (12.0-15.5); MEAN CORPUSCULAR HEMOGLOBIN 29.7 pg (27.0-33.0); MEAN CORPUSCULAR HGB CONC 32.7 g/dl (32.0-36.5); MEAN CORPUSCULAR VOLUME 90.9 fl (80.0-96.0); PLATELET COUNT, AUTOMATED 467 10^3/uL (150-450); RED BLOOD COUNT 4.95 10^6/uL (4.00-5.40); WHITE BLOOD COUNT 9.1 10^3/uL (4.0-10.0)
[2019-12-05 04:02] LABS: AMPHETAMINES LEVEL URINE NEGATIVE (NEGATIVE); BARBITURATES URINE NEGATIVE (NEGATIVE); BENZODIAZEPINES URINE NEGATIVE (NEGATIVE); CANNABINOIDS URINE NEGATIVE (NEGATIVE); COCAINE METABOLITE URINE NEGATIVE (NEGATIVE); METHADONE URINE NEGATIVE (NEGATIVE); OPIATES URINE NEGATIVE (NEGATIVE); PHENCYCLIDINE URINE NEGATIVE (NEGATIVE)
[2019-12-05 04:12] LABS: HCG, SERUM QUALITATIVE NEGATIVE (NEGATIVE)
[2019-12-05 04:14] LABS: ACETAMINOPHEN LEVEL < 2.0 UG/ML (10.0-30.0); ALBUMIN 4.1 GM/DL (3.2-5.2); ALT/SGPT 23 U/L (12-78); BILIRUBIN,DIRECT 0.1 MG/DL (0.0-0.2); BILIRUBIN,TOTAL 0.3 MG/DL (0.2-1.0); BLOOD UREA NITROGEN 5 MG/DL (7-18); CALCIUM LEVEL 8.4 MG/DL (8.5-10.1); CARBON DIOXIDE LEVEL 27 MEQ/L (21-32); CHLORIDE LEVEL 112 MEQ/L (98-107); CREATININE FOR GFR 0.77 MG/DL (0.55-1.30); ETHYL ALCOHOL (ETHANOL) 0.236 % (0.000-0.010); GLOMERULAR FILTRATION RATE > 60.0 (>60); GLUCOSE, FASTING 106 MG/DL (70-100); POTASSIUM SERUM 3.8 MEQ/L (3.5-5.1); SALICYLATE LEVEL < 1.7 MG/DL (5.0-30.0); SODIUM LEVEL 146 MEQ/L (136-145)
[2019-12-05 08:11] VITALS: BP 120/70
== END 2019-12-05 09:05 | disposition home or self-care (01) ==
LOC: M ED 02:25
DX: F10.920 Alcohol use, unspecified with intoxication, uncomplicated (principal); F43.10 Post-traumatic stress disorder, unspecified; F32.9 Major depressive disorder, single episode, unspecified; Z91.041 Radiographic dye allergy status; Z88.5 Allergy status to narcotic agent; Z79.899 Other long term (current) drug therapy
CPT/HCPCS: 80048; 80076; 80307; 84443; 84703; 85027; 99284; G0480

== ENCOUNTER 2020-07-19 10:09 | Emergency (ER) | payer MEDICAID, OTHER, SELFPAY ==
[~2020-07-19] VITALS: Ht 170.2 cm; Wt 81.8 kg
[~2020-07-19 10:09] MED LIST changes: -ALL10TAB29; +CETI-24; +CETI-24 PO; -FLUO20CA19; +FLUO20CA22; +FLUO20CA22 PO; +PRENTAB9 PO; +PROAAER10 INH
[2020-07-19] MEDS ORDERED: TRAM1CAP15 PO (10:18)
[2020-07-19] MEDS ORDERED: cefTRIAXone SOD 250MG VIAL (J0696 PER 250MG) IM ONE (11:45)
[2020-07-19] MEDS ORDERED: AZITHROMYCIN 250MG TABLET PO ONE (11:45)
[2020-07-19] MEDS ORDERED: LIDOCAINE 1% SDV 5ML VIAL DILUENT ONE (11:45)
[2020-07-19 12:02] LABS: APPEARANCE, URINE CLEAR (CLEAR); BACTERIA, URINE AUTO NEGATIVE (NEGATIVE); BILIRUBIN, URINE AUTO NEGATIVE (NEGATIVE); BLOOD, URINE BLOOD 1+ (NEGATIVE); COLOR, URINE YELLOW (YELLOW); GLUCOSE, URINE (UA) AUTO NEGATIVE (NEGATIVE); KETONE, URINE AUTO NEGATIVE (NEGATIVE); LEUKOCYTE ESTERASE, URINE AUTO NEGATIVE (NEGATIVE); NITRITE, URINE AUTO NEGATIVE (NEGATIVE); PROTEIN, URINE AUTO NEGATIVE (NEGATIVE); RBC, URINE AUTO 2 /HPF (0-3); SPECIFIC GRAVITY URINE AUTO 1.015 (1.002-1.035); SQUAMOUS EPITHELIAL CELL UR AU 0 /HPF (0-6); UROBILINOGEN, URINE AUTO 0.2 mg/dL (0.0-2.0); WBC, URINE AUTO 2 /HPF (0-3)
[2020-07-19 12:22] LABS: HCG, SERUM QUALITATIVE NEGATIVE (NEGATIVE)
[2020-07-19] MEDS ORDERED: KETOROLAC TROMETHAMINE 10 MG TAB PO ONE (12:30)
[2020-07-19 14:14] VITALS: BP 127/76
[2020-07-19 14:18] LABS: CHLAMYDIA DNA AMPLIFICATION NEGATIVE (NEGATIVE); GC DNA AMPLIFICATION NEGATIVE (NEGATIVE)
[2020-07-20 11:08] LABS: HEPATITIS B SURFACE ANTIBODY POSITIVE (POSITIVE); HEPATITIS B SURFACE ANTIGEN NEGATIVE (NEGATIVE); HEPATITIS C VIRUS ABY INDEX 0.2 INDEX (<0.8); HIV 1&2 SCREEN CENTAUR NEGATIVE (NEGATIVE)
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
--- NOTE | 2020-08-18 07:17 | REP ---
CERVICAL SPINE CT WITHOUT CONTRAST CLINICAL: Trauma, fall. COMPARISON: 03/22/2012. TECHNIQUE: Axial noncontrast images from the skull base to the thoracic inlet with coronal and sagittal reformations. FINDINGS: Straightening of normal lordosis is again noted and chronic. The vertebral bodies are intact, and there is no evidence for acute fracture/compression injury or subluxation. There is chronic stable partial fusion at the C6-7 level. The posterior elements and spinous processes are intact. The spinal canal is patent. The paravertebral soft tissues are normal. IMPRESSION: No acute fracture/compression injury or subluxation. MTDD
== END 2020-07-19 14:16 | disposition home or self-care (01) ==
LOC: M ED 10:09
DX: S09.90XA Unspecified injury of head, initial encounter (principal); W22.8XXA Striking against or struck by other objects, initial encounter; Y92.9 Unspecified place or not applicable; Y93.9 Activity, unspecified; Y99.9 Unspecified external cause status; Z20.2 Contact with and (suspected) exposure to infections with a predominantly sexual mode of transmission; J45.909 Unspecified asthma, uncomplicated; F41.9 Anxiety disorder, unspecified; F33.9 Major depressive disorder, recurrent, unspecified; K21.9 Gastro-esophageal reflux disease without esophagitis; Z79.899 Other long term (current) drug therapy; Z88.5 Allergy status to narcotic agent; Z91.041 Radiographic dye allergy status; Z72.0 Tobacco use
CPT/HCPCS: 70450; 72125; 81001; 84703; 86706; 86780; 86803; 87210; 87340; 87389; 87661; 96372; 99283; J0696

== ENCOUNTER 2020-12-15 06:17 | Emergency (ER) | payer MEDICAID, OTHER ==
[~2020-12-15] VITALS: Ht 167.6 cm; Wt 81.8 kg
[~2020-12-15 06:17] MED LIST changes: +TRAM1CAP15 PO
[2020-12-15] MEDS ORDERED: BOOSTRIX/ADACEL VACCINE (DIPHTH/PERTUSS/ACELL/TETANUS) 0.5ML SYR IM ONE (07:00)
[2020-12-15] MEDS ORDERED: ACETAMINOPHEN 500 MG TAB PO ONE (07:00)
[2020-12-15] MEDS ORDERED: cefTRIAXone 500MG VIAL (J0696 PER 250MG) IM ONE (07:45)
[2020-12-15] MEDS ORDERED: LIDOCAINE 1% SDV 5ML VIAL DILUENT ONE (07:45)
[2020-12-15] MEDS ORDERED: DOXYCYCLINE HYCLATE 100MG TABLET PO ONE (07:45)
[2020-12-15 07:48] LABS: BASO # 0.1 10^3/uL (0.0-0.2); BASO % 1.1 % (0.0-1.0); EOS # 0.1 10^3/uL (0.0-0.5); EOS % 1.3 % (0.0-3.0); HEMATOCRIT 44.3 % (36.0-47.0); HEMOGLOBIN 14.7 g/dl (12.0-15.5); LYMPH # 1.8 10^3/uL (1.5-5.0); LYMPH % 18.4 % (24.0-44.0); MEAN CORPUSCULAR HEMOGLOBIN 30.7 pg (27.0-33.0); MEAN CORPUSCULAR HGB CONC 33.2 g/dl (32.0-36.5); MEAN CORPUSCULAR VOLUME 92.5 fl (80.0-96.0); MONO # 0.6 10^3/uL (0.0-0.8); MONO % 6.1 % (0.0-5.0); NEUTROPHILS # 7.2 10^3/uL (1.5-8.5); NEUTROPHILS % 72.6 % (36.0-66.0); PLATELET COUNT, AUTOMATED 504 10^3/uL (150-450); RED BLOOD COUNT 4.79 10^6/uL (4.00-5.40); WHITE BLOOD COUNT 9.9 10^3/uL (4.0-10.0)
[2020-12-15 08:15] LABS: BLOOD UREA NITROGEN 6 MG/DL (7-18); CALCIUM LEVEL 10.2 MG/DL (8.5-10.1); CARBON DIOXIDE LEVEL 32 MEQ/L (21-32); CHLORIDE LEVEL 104 MEQ/L (98-107); CREATININE FOR GFR 0.78 MG/DL (0.55-1.30); GLOMERULAR FILTRATION RATE > 60.0 (>60); GLUCOSE, FASTING 121 MG/DL (70-100); POTASSIUM SERUM 4.3 MEQ/L (3.5-5.1); SODIUM LEVEL 143 MEQ/L (136-145)
[2020-12-15] MEDS ORDERED: AZITHROMYCIN 250MG TABLET PO ONE (08:15)
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
[2020-12-15] MEDS ORDERED: FLAG500T PO (09:14)
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
[2020-12-15 09:48] LABS: CHLAMYDIA DNA AMPLIFICATION NEGATIVE (NEGATIVE); GC DNA AMPLIFICATION NEGATIVE (NEGATIVE)
[2020-12-15] MEDS ORDERED: KETOROLAC 30 MG/ML 1ML VIAL IV ONE (10:45)
[2020-12-15 11:05] VITALS: BP 123/60
[2020-12-15 15:47] LABS: HEPATITIS B SURFACE ANTIBODY POSITIVE (POSITIVE); HEPATITIS B SURFACE ANTIGEN NEGATIVE (NEGATIVE); HEPATITIS C VIRUS ABY INDEX < 0.0 INDEX (<0.8); HIV 1&2 SCREEN CENTAUR NEGATIVE (NEGATIVE)
== END 2020-12-15 11:25 | disposition home or self-care (01) ==
LOC: M ED 06:17
DX: S50.311A Abrasion of right elbow, initial encounter (principal); S40.011A Contusion of right shoulder, initial encounter; S50.01XA Contusion of right elbow, initial encounter; S70.01XA Contusion of right hip, initial encounter; S00.83XA Contusion of other part of head, initial encounter; Y04.8XXA Assault by other bodily force, initial encounter; Y07.01 Husband, perpetrator of maltreatment and neglect; Y92.009 Unspecified place in unspecified non-institutional (private) residence as the place of occurrence of the external cause; Y93.89 Activity, other specified; Y99.8 Other external cause status; J45.909 Unspecified asthma, uncomplicated; F41.9 Anxiety disorder, unspecified; K21.9 Gastro-esophageal reflux disease without esophagitis; F33.9 Major depressive disorder, recurrent, unspecified; F17.200 Nicotine dependence, unspecified, uncomplicated; Z79.899 Other long term (current) drug therapy; Z82.49 Family history of ischemic heart disease and other diseases of the circulatory system; Z91.041 Radiographic dye allergy status; Z88.5 Allergy status to narcotic agent
CPT/HCPCS: 36415; 70450; 70486; 72110; 72125; 73030; 73080; 73502; 80048; 81001; 84702; 85025; 86706; 86780; 86803; 87210; 87340; 87389; 87661; 90471; 90715; 96372; 96374; 99284; J0696; J1885

== ENCOUNTER 2024-01-28 15:42 | Observation (INO) | payer OTHER ==
[~2024-01-28] VITALS: Ht 167.6 cm; Wt 85.5 kg
[~2024-01-28 15:42] MED LIST changes: +FLAG500T PO
[2024-01-28 16:56] LABS: BASO # 0.1 10^3/uL (0.0-0.2); EOS # 0.4 10^3/uL (0.0-0.5); EOS % 4.5 % (0.0-3.0); HEMATOCRIT 44.3 % (36.0-47.0); HEMOGLOBIN 14.9 g/dl (12.0-15.5); LYMPH # 2.6 10^3/uL (1.5-5.0); LYMPH % 27.5 % (24.0-44.0); MEAN CORPUSCULAR HEMOGLOBIN 31.9 pg (27.0-33.0); MEAN CORPUSCULAR HGB CONC 33.6 g/dl (32.0-36.5); MEAN CORPUSCULAR VOLUME 94.9 fl (80.0-96.0); MONO # 0.8 10^3/uL (0.0-0.8); MONO % 8.4 % (2.0-8.0); NEUTROPHILS # 5.6 10^3/uL (1.5-8.5); NEUTROPHILS % 58.3 % (36.0-66.0); PLATELET COUNT, AUTOMATED 433 10^3/uL (150-450); RED BLOOD COUNT 4.67 10^6/uL (4.00-5.40); WHITE BLOOD COUNT 9.5 10^3/uL (4.0-10.0)
[2024-01-28 17:10] LABS: ALBUMIN 3.8 G/DL (3.2-5.2); BILIRUBIN,DIRECT 0.1 MG/DL (<0.4); BILIRUBIN,TOTAL 0.3 MG/DL (0.3-1.2); TOTAL PROTEIN 7.3 G/DL (5.7-8.2)
[2024-01-28] MEDS: ONDANSETRON 4MG 2ML VIAL IV ONE (17:58)
[2024-01-28] MEDS: KETOROLAC 30 MG/ML 1ML VIAL IV ONE (17:58)
[2024-01-28] MEDS: NS 1,000 ML IV ONE (17:58)
[2024-01-28] MEDS: fentaNYL 100 MCG/2 ML INJECTION IV ONE (20:18)
[2024-01-28] MEDS ORDERED: ALBU8.5H INH (22:16)
[2024-01-28] MEDS ORDERED: HOME MED LIST COMPLETE! XX SCH (22:20)
[2024-01-28] MEDS: ACETAMINOPHEN *IV* 1,000 MG in IV 1 EA IV SCH (22:53)
[2024-01-29] MEDS: NS 1,000 ML IV SCH (00:59)
[2024-01-29 01:15] VITALS: BP 125/74; TEMP 97.7; O2SAT 99
[2024-01-29] MEDS: MORPHINE 4 MG/ML 1ML VIAL IV PRN (01:44)
[2024-01-29] MEDS: ONDANSETRON 4MG 2ML VIAL IV PRN (07:41)
[2024-01-29] MEDS: ENOXAPARIN 40MG/0.4ML SYRINGE (J1650 PER 10MG) SC SCH (08:56)
[2024-01-29] MEDS: KETOROLAC 30 MG/ML 1ML VIAL IV PRN (08:56)
[2024-01-29 09:19] LABS: LIPASE 25 U/L (12-53)
[2024-01-29 09:23] LABS: ALBUMIN 2.9 G/DL (3.2-5.2); ALKALINE PHOSPHATASE 79 U/L (46-116); ALT/SGPT 22 U/L (7.0-40); AST/SGOT 13 U/L (<34); BILIRUBIN,TOTAL 0.4 MG/DL (0.3-1.2); BLOOD UREA NITROGEN 10 MG/DL (9-23); CALCIUM LEVEL 8.3 MG/DL (8.5-10.1); CARBON DIOXIDE LEVEL 25 MMOL/L (20-31); CHLORIDE LEVEL 107 MMOL/L (98-107); CREATININE FOR GFR 0.64 MG/DL (0.55-1.30); GLOMERULAR FILTRATION RATE > 60.0 (>60); GLUCOSE, FASTING 98 MG/DL (60-100); SODIUM LEVEL 138 MMOL/L (136-145); TOTAL PROTEIN 5.7 G/DL (5.7-8.2)
[2024-01-29] MEDS: diphenhydrAMINE 50MG/ML VIAL IV ONE (09:58)
[2024-01-29] MEDS: methylPREDNISolone 40MG 1ML VIAL IV ONE (09:58)
[2024-01-29] MEDS: INFLUENZA QUADRIVALENT PF VACCINE 0.5ML SYRINGE IM.IMMUN ONE (12:38)
[2024-01-29 14:00] VITALS: BP 116/68; TEMP 98.2; O2SAT 94
[2024-01-29 19:42] VITALS: BP 130/75; TEMP 97.9; O2SAT 97
[2024-01-30 06:09] VITALS: BP 110/82; TEMP 98.6; O2SAT 97
[2024-01-30] MEDS ORDERED: E-Z-PAQUE 96% w/w SUSP 176GM BTL As Ordered ONE (08:58)
[2024-01-30] MEDS: PANTOPRAZOLE 40MG TAB (PROTONIX) PO SCH (11:01)
[2024-01-30] MEDS: MOM 30ML SUSPENSION UDC PO ONE (11:21)
[2024-01-30] MEDS: KETOROLAC TROMETHAMINE 10 MG TAB PO SCH (15:56)
[2024-01-30 20:04] VITALS: BP 113/78; TEMP 98.1; O2SAT 98
[2024-01-30] MEDS: DOCUSATE SODIUM 100MG CAPSULE PO SCH (20:14)
[2024-01-30] MEDS: ACETAMINOPHEN 500 MG TAB PO SCH (20:16)
[2024-01-31] MEDS: DICYCLOMINE 10 MG CAP PO PRN (04:00)
[2024-01-31 05:47] VITALS: BP 112/66; TEMP 97.9; O2SAT 98
[2024-01-31] MEDS: MOM 30ML SUSPENSION UDC PO SCH (09:00)
[2024-01-31] MEDS ORDERED: PANT40TA29 PO (09:29)
[2024-01-31] MEDS ORDERED: IBUP-1022 PO (09:29)
[2024-01-31] MEDS ORDERED: ACET-683 PO (09:29)
[2024-01-31] MEDS ORDERED: DICY1CAP8 PO (09:29)
== END 2024-01-31 11:00 | disposition home or self-care (01) ==
LOC: M ED 15:42 → INTOOBSV 21:52 → M ED INP 21:52 → ENRESERV 23:45 → M MS5PR 01-29 01:20
PROVIDERS: ADMIT Student in an Organized Health Care Education/Training Program; ATTEND Internal Medicine Nephrology
DX: K80.20 Calculus of gallbladder without cholecystitis without obstruction (principal); R11.2 Nausea with vomiting, unspecified; R10.9 Unspecified abdominal pain; K59.00 Constipation, unspecified; K58.2 Mixed irritable bowel syndrome; K21.9 Gastro-esophageal reflux disease without esophagitis; F10.90 Alcohol use, unspecified, uncomplicated; Z72.0 Tobacco use; J45.909 Unspecified asthma, uncomplicated; M06.9 Rheumatoid arthritis, unspecified; Z86.19 Personal history of other infectious and parasitic diseases; Z90.49 Acquired absence of other specified parts of digestive tract; Z98.890 Other specified postprocedural states; Z91.041 Radiographic dye allergy status; Z88.5 Allergy status to narcotic agent
CPT/HCPCS: 74176; 74250; 76705; 80047; 80053; 80076; 81001; 83690; 84702; 85025; 87635; 90471; 90686; 96372; 96375; 96376; 99284; J0131; J1200; J1650; J1885; J2405; J2920; J3010